=== PATIENT | male | born 1935 | race Caucasian/White ===

== ENCOUNTER 2017-06-12 16:42 | Outpatient (CLI) | payer MEDICARE | END 2017-06-12 16:43 | disposition critical access hospital (66) | LOC: EMS 16:42 | PROVIDERS: ATTEND Surgery | DX: R10.9 Unspecified abdominal pain (principal) | CPT/HCPCS: A0425; A0429 ==

== ENCOUNTER 2017-06-12 16:53 | Inpatient (IN) | payer MEDICARE ==
[2017-06-12 18:21] LABS: BASOPHILS # (AUTO) 0.1 10^3/uL (0.0-0.1); BASOPHILS % (AUTO) 0.9 %; EOSINOPHILS # (AUTO) 0.2 10^3/uL (0.0-0.7); EOSINOPHILS % (AUTO) 1.7 %; HCT - HEMATOCRIT 36.2 % (42.0-52.0); HGB - HEMOGLOBIN 12.1 g/dL (14.0-18.0); LYMPHOCYTES # (AUTO) 1.4 10^3/uL (1.5-3.5); LYMPHOCYTES % (AUTO) 13.4 %; MEAN CORPUSCULAR HEMOGLOBIN 28.1 pg (27.0-31.0); MEAN CORPUSCULAR HGB CONC 33.5 g/dL (32.0-36.0); MEAN PLATELET VOLUME 8.4 fL (7.4-11.4); MONOCYTES # (AUTO) 0.9 10^3/uL (0.0-1.0); MONOCYTES % (AUTO) 8.3 %; NEUTROPHILS # (AUTO) 7.8 10^3/uL (1.5-6.6); NEUTROPHILS % (AUTO) 75.7 %; RED BLOOD COUNT 4.31 10^6/uL (4.70-6.10); RED CELL DISTRIBUTION WIDTH 13.3 % (12.0-15.0); UNCORRECTED WHITE BLOOD COUNT 10.3 x10^3/uL; WHITE BLOOD COUNT 10.3 x10^3/uL (4.8-10.8)
[2017-06-12 18:32] LABS: ALBUMIN/GLOBULIN RATIO 1.1 (1.0-2.2); BILIRUBIN,TOTAL 1.1 mg/dL (0.2-1.0); CREATININE 0.9 mg/dL (0.6-1.2); POTASSIUM 3.8 mmol/L (3.5-5.0); TOTAL PROTEIN 7.3 g/dL (6.7-8.2)
[2017-06-12 19:33] LABS: BILIRUBIN,URINE NEGATIVE (NEGATIVE); PH,URINE 6.5 PH (5.0-7.5); UA CHARGE (STRIP ONLY) YES; UR CULTURE IF IND NOT INDICATED
[2017-06-12] MEDS ORDERED: IOPAMIDOL-300 100 ML VIAL IVP ONE (19:36)
--- NOTE | 2017-06-12 20:28 | CT Preliminary Report ---
Exam: CT Abdomen/Pelvis W/ IMPRESSION: 1. Thick-walled bladder concerning for cystitis. 2. Tiny gallstones noted. [facility] SITE ID: [id number]
--- NOTE | 2017-06-12 20:30 | CT Report ---
EXAM: CT ABDOMEN AND PELVIS EXAM DATE: 06/12/2017 07:40 PM. CLINICAL HISTORY: Abdominal pain. COMPARISONS: None. TECHNIQUE: Routine helical CT imaging was performed through the abdomen and pelvis. IV contrast: 100 cc of Isovue-300. Enteric contrast: No. Reconstructions: Coronal and sagittal. In accordance with CT protocol optimization, one or more of the following dose reduction techniques w ere utilized for this exam: automated exposure control, adjustment of mA and/or KV based on patient s ize, or use of iterative reconstructive technique. FINDINGS: Lung Bases: Coronary artery calcification noted, otherwise unremarkable. Liver: Normal. No masses. Gallbladder/Bile Ducts: Tiny gallstones noted. No dilated ducts. Spleen: Normal. Pancreas: Normal. Adrenal Glands: Normal. Kidneys: Normal. No masses or hydronephrosis. Peritoneal Cavity/Bowel: Normal. No free fluid, free air or adenopathy. No masses or acute inflammato ry process. The appendix is well visualized and normal. Pelvic Organs: Prostate unremarkable. Thick-walled bladder. Vasculature: No aortic dilatation. Moderate atherosclerotic calcification. Bones: Advanced degenerative disk disease at L4-L5 and L5-S1. Other: None. IMPRESSION: 1. Thick-walled bladder concerning for cystitis. 2. Tiny gallstones noted. [facility] Referring Provider Line: [phone] SITE ID: [id number]
--- NOTE | 2017-06-12 21:39 | ED Physician Documentation ---
History of Present Illness - Stated complaint Stated Complaint: ABD PX - Chief complaint Chief Complaint: Abd Pain - History obtained from History obtained from: Patient, Family - History of Present Illness Timing: How many weeks ago (1) Pain level max: 0 Pain level now: 0 Improved by: nothing Worsened by: nothing - Additonal information Additional information: Patient is an 82-year-old male who presents to the emergency department with complaints of increasing weakness over the past week or so. Now unable to get out of bed by himself. The daughter has been taking care of him at home since 2014. States that this is an acute change. Patient has not been eating and drinking well. No fevers. She is concerned that he has not had a bowel movement since 8 days ago. States that normally he goes every other day. Review of Systems Unable to obtain: Dementia Constitutional: denies: Fever, Chills Nose: denies: Rhinorrhea / runny nose, Congestion Throat: denies: Sore throat Respiratory: denies: Cough GI: denies: Vomiting, Diarrhea, Hematemesis, Bloody / black stool Skin: denies: Rash Musculoskeletal: denies: Neck pain, Back pain Neurologic: denies: Focal weakness, Numbness, Seizure PD PAST MEDICAL HISTORY - Past Medical History Cardiovascular: Hypertension Neuro: Dementia - Past Surgical History Past Surgical History: Yes Cardiovascular: CABG - Present Medications Home Medications: Ambulatory Orders Medication Instructions Recorded Confirmed Omeprazole 20 mg PO DAILY 03/18/15 06/12/17 QUEtiapine [SEROquel] 100 mg PO ONCE PRN 03/18/15 06/12/17 Sertraline [Zoloft] 25 mg PO DAILY 06/12/17 06/12/17 - Allergies Allergies/Adverse Reactions: Allergies Allergy/AdvReac Type Severity Reaction Status Date / Time No Known Drug Allergies Allergy Verified 06/12/17 17:02 - Social History Does the pt smoke?: No Smoking Status: Never smoker Does the pt drink ETOH?: No Does the pt have substance abuse?: No - Immunizations Immunizations are current?: Yes - POLST Patient has POLST: No PD ED PE NORMAL - Vitals Vital signs reviewed: Yes - General General: No acute distress, Well developed/nourished, Other (alert, oriented to person only) - HEENT HEENT: Atraumatic, PERRL, Moist mucous membranes - Neck Neck: Supple, no meningeal sign - Cardiac Cardiac: RRR - Respiratory Respiratory: No respiratory distress, Clear bilaterally - Abdomen Abdomen: Soft, Non tender, Non distended - Rectal Rectal: Other (soft stool in rectal vault) - Back Back: No CVA TTP, No spinal TTP - Derm Derm: Warm and dry, Other - Extremities Extremities: No calf tenderness / cord, Other (R LE scabs and erythema from the mid tibia to the toes. + warmth. ) - Neuro Neuro: Other (alert) Results - Vitals Vitals: Vital Signs - 24 hr 06/12/17 06/12/17 16:57 20:24 Temperature 36.8 C 36.9 C Heart Rate 99 91 Respiratory 24 18 Rate Blood Pressure 195/79 H 164/93 H O2 Saturation 99 96 Oxygen O2 Source Room air - Labs Labs: Laboratory Tests 06/12/17 06/12/17 06/12/17 18:12 18:12 19:20 WBC 10.3 RBC 4.31 L Hgb 12.1 L Hct 36.2 L MCV 84.0 MCH 28.1 MCHC 33.5 RDW 13.3 Plt Count 292 MPV 8.4 Neut # 7.8 H Lymph # 1.4 L [place] # 0.9 Eos # 0.2 Baso # 0.1 Absolute Nucleated RBC 0.00 Nucleated RBCs 0.0 Sodium 139 Potassium 3.8 Chloride 102 Carbon Dioxide 30 Anion Gap 7.0 BUN 31 H Creatinine 0.9 Estimated GFR (MDRD) 81 L Glucose 113 H Calcium 9.0 Total Bilirubin 1.1 H AST 15 ALT 13 Alkaline Phosphatase 68 Total Protein 7.3 Albumin 3.9 Globulin 3.4 Albumin/Globulin Ratio 1.1 Lipase 23 Urine Color YELLOW Urine Clarity CLEAR Urine pH 6.5 Ur Specific [place] 1.020 Urine Protein NEGATIVE Urine Glucose (UA) NEGATIVE Urine Ketones NEGATIVE Urine Occult Blood TRACE-INTA Urine Nitrite NEGATIVE Urine Bilirubin NEGATIVE Urine Urobilinogen 0.2 (NORMAL) Ur Leukocyte Esterase NEGATIVE Ur Microscopic Review NOT INDICATED Urine Culture Comments NOT INDICATED - Rads (name of study) abd/pelvis CT Radiology: Prelim report reviewed, EMP read contemporaneously, See rad report ( . Thick-walled bladder concerning for cystitis. Tiny gallstones noted. ) PD MEDICAL DECISION MAKING - ED course Complexity details: reviewed results, re-evaluated patient, considered differential, d/w patient, d/w family, d/w solar consultant ED course: Patient is an 82-year-old male with severe dementia who presents to the emergency department with increasing weakness over the past week. He has been unable to get out of bed and the family is unable to care for him while at home. He appears to have a spreading cellulitis of the right lower extremity and will place on IV antibiotics for this. He also appears dehydrated with an elevated BUN to creatinine ratio. He also appears deconditioned. Not hallucinating here. Possible cystitis on CT scan, but normal urinalysis here. Discussed the case with Dr. Leong, hospitalist who accepts. This document was made in part using voice recognition software. While efforts are made to proofread this document, sound alike and grammatical errors may occur. Departure - Departure Disposition: 66 [facility] DC/Xfer Clinical Impression: Generalized weakness, Physical deconditioning, Dehydration Dementia Qualifiers: Dementia type: unspecified type Dementia behavioral disturbance: without behavioral disturbance Qualified Code(s): F03.90 - Unspecified dementia without behavioral disturbance Cellulitis Qualifiers: Site of cellulitis: extremity Site of cellulitis of extremity: lower extremity Laterality: right Qualified Code(s): L03.115 - Cellulitis of right lower limb Condition: Stable Discharge Date/Time: 06/12/17 23:21
[2017-06-12] MEDS ORDERED: SODIUM CHLORIDE 0.9% 1,000 ML IV ONE (21:49)
[2017-06-12] MEDS ORDERED: SODIUM CHLORIDE 0.9% 500 ML IV ONE (21:49)
[2017-06-12] MEDS ORDERED: ONDANSETRON 4 MG/2 ML VIAL IVP PRN (22:30)
[2017-06-12] MEDS ORDERED: SODIUM CHLORIDE FLUSH 0.9% 10 ML SYRINGE IVP PRN (22:30)
[2017-06-12] MEDS ORDERED: AMPICILLIN/SULBACTAM 3 GM in SODIUM CHLORIDE 0.9% MINIBAG 100 ML IV STA (22:30)
[2017-06-12] MEDS ORDERED: QUEtiapine 25 MG TABLET PO STA ×2 (22:39→22:41)
[2017-06-13] MEDS: ACETAMINOPHEN 325 MG TABLET PO PRN ×3 (00:07→13:50)
--- NOTE | 2017-06-13 01:38 | HISTORY & PHYSICAL EXAMINATION ---
DATE OF ADMISSION: 06/12/2017 CHIEF COMPLAINT: Abdominal pain, weakness. IDENTIFYING INFORMATION: The patient is unable to give even minimal information that has any reliability and the primary source of history is his daughter, who appears cogent, consistent and thorough. Her name is Rae Aguirre, contact number [phone]. The patient's history is supplemented by the hand-off from Dr. Camilo Willard, the emergency department physician, as well as personal review of medical records and data collected during this visit. The patient's examination was also used in evaluation of this patient and preparation of this document. HISTORY OF PRESENT ILLNESS: The patient is an 82-year-old male who has had dementia for a number of years and who had been with the daughter being guardian in 2014 but she has been with them a few years before that. The patient has had a rapid decline in the last couple of months, a steeper decline yet. In particular, the patient in the end of March was evaluated for possible placement, [facility] would be the local SNF but the director who was doing the evaluation said the patient was too ambulatory and he has had nocturnal wandering habit would not to be able to be admitted there. The patient subsequently has gotten weaker and in the last few days has reached the point where he can not even sit up, turn over and get out of bed by himself. The patient's daughter, who is the sole caregiver is unable to provide the basic medial needs at this point. The patient also had abdominal pain, which has been chronic. At times, the patient seems to not to be able to recognize what he has. The patient has also been eating less, drinking less and had to be fed this week by the daughter. All these are change in symptoms. The patient appears to be talking more gibberish and more incapable of following even simple commands at times. 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 REVIEW OF SYSTEMS: No nausea reported, no vomiting. No cough. No sore throat. The patient has incontinence, both urine and feces. The rest of the complete review of systems is noted with pertinent positives in the history of present illness. PAST MEDICAL HISTORY: Remarkable for hypertension, coronary artery disease, dementia, gout. PAST SURGICAL HISTORY: He had CABG and vein harvesting in both legs. This is remote. MEDICATIONS: 1. Omeprazole 20 mg a day. 2. Seroquel 100 mg p.r.n. behavioral changes. 3. Zoloft 25 mg daily. ALLERGIES: HE HAS NO KNOWN ALLERGIES. PERSONAL AND SOCIAL HISTORY: The patient was born in [place] and when asked directly where he was born he said he was born in [place], which is where he lived later in his life. 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 The patient did a lot of traveling to [place] and [place]. This patient was a heavy smoker, over a pack a day, quit 15 years ago, he was also heavy drinker and quit 15years ago. This was because his second had throat cancer. The patient has had 4 children. A brother at 47 of heart disease. He had a son who at 47 of heart disease, he has another son and two daughters. The family history is negative for diabetes. Positive for heart disease and no cancer in the father's side noted. PHYSICAL EXAMINATION VITAL SIGNS: 36.8, 99, 24, 195/79 and 99 oxygen saturation room air. GENERAL: The patient appears well-developed, well-nourished, often talking gibberish not even intelligible words, but repetitive syllables and sounds. Sometimes there is some syntax to a sentence but does not even make sense or is understandable. EYES: EOM within normal limits, PERRL, nonicteric. MOUTH AND THROAT: Dry mucous membranes. No other pathology noted. NECK: No lymphadenopathy, no thyromegaly, no tracheal deviation. No bruits or JVD. CHEST WALL: Nontender. Symmetric. HEART: Sinus rhythm, no murmur, rubs, clicks heard. LUNGS: Clear, good air movement bilaterally. ABDOMEN: Somewhat doughy and nontender at this time. No hepatosplenomegaly appreciated. The patient had a CT scan of his abdomen and findings were thick walled bladder concerning for cystitis and tiny gallstones were noted. RECTAL/GENITAL: Exam was not done by this physician; the emergency department physician had a hemoccult negative stool with soft feces. EXTREMITIES: He has 2+ edema the right leg below the knee and has an angry red, erythematous rash from the mid calf to the ankle with areas of 1 cm eschars with surrounding erythematous base, which are proximal to the distal erythema. The patient has erythema also across the top of the foot and tenderness at the top of the foot as well. Has faint erythema of the left ankle and just above the ankle, extent of the swelling, redness, or any significant sores around the right lower leg. NEURO: Cognitive has already been discussed previously. He has very poor capacity to follow even simple commands. The patient's motor is intact. Unable to assess sensory and there is no gait trial attempted. DIAGNOSTICS: He has a white count of 10.3, 12 and 36 hemoglobin and hematocrit, platelets are 292. The patient's sodium 139, potassium 3.8, chloride 102, CO2 of 30, BUN is 31, creatinine is 0.9. The patient's glucose is 113, and calcium 9.0. Normal liver enzymes, albumin is 3.9. Urine is 1.020 with a negative microscopic. SUMMARY: This is an 82-year-old gentleman with steepened decline in his cognitive function and now with generalized progressive weakness and inability totake solids, fluids and to follow commands. The patient was found to have a cellulitis in addition to the above findings, and given his comorbidities he is admitted to the hospital for antibiotics and hydration. DIAGNOSES: 1. Cellulitis, right lower leg. 2. Dehydration. 3. Progressive generalized weakness. 4. Obstipation. 5. Hypertension. 6. Coronary artery disease. 7. Gout. 8. Gastroesophageal reflux disease. PATIENT DISCUSSION/DECISION MAKIN. Cellulitis. Will be treated with Unasyn initially. Elevate leg and heat will also be used with further interventions depending on the initial response. 2. Dehydration. The patient will be slowly rehydrated to prevent complications. 3. Generalized weakness will be addressed with physical therapy and occupational therapy evaluations and determine if any other interventions would be useful. Also, the patient will have his thyroid function checked. The obstipation has not had any findings consistent with ileus or bowel obstruction at this juncture and will need to be addressed with stool softeners. 4. Hypertension, which will be monitored and hypertension medication added if needed. Will accept a systolic blood pressure in the 160s. 5. Coronary artery disease appears to be quiescent at this point and will be monitored. 6. The patient's gout, he will have a uric acid to verify any need for medication. 7. GERD. Will be treated with his at home regime of daily PPI. HOSPITAL ISSUES: 1. Code status. The was consulted about his present condition and wishes and the will was reviewed with the daughter, Rae, and she agrees to DNR/ DNI. 2. Venous thromboembolism prophylaxis which will be Lovenox subcutaneous. 3. Diet, which will be a mechanical soft at this time. If there are any signs of aspiration we will have a speech evaluation. 4. Activity which will be guided by Physical Therapy and nurse evaluation. 5. Tubes will be a peripheral by IV at this juncture. 6. Hospital status, given his cellulitis requiring IV antibiotics, as well as his extensive comorbidities, he needs at least 3 nights of inpatient care to assure sufficient improvement for him to have a safe discharge. 7. Disposition, which is expected to be a usp facility given the extent of his deterioration with the possibility of returning home after therapy for his deconditioning and weakness. His length of stay, which is 3 nights. JOB #: [id number] EXT JOB #:[id number] MTDTrice
[2017-06-13 05:52] LABS: BASOPHILS % (AUTO) 0.3 %; EOSINOPHILS # (AUTO) 0.2 10^3/uL (0.0-0.7); EOSINOPHILS % (AUTO) 2.1 %; HCT - HEMATOCRIT 34.5 % (42.0-52.0); HGB - HEMOGLOBIN 11.9 g/dL (14.0-18.0); LYMPHOCYTES # (AUTO) 1.6 10^3/uL (1.5-3.5); MEAN CORPUSCULAR HEMOGLOBIN 28.7 pg (27.0-31.0); MEAN CORPUSCULAR HGB CONC 34.4 g/dL (32.0-36.0); MEAN CORPUSCULAR VOLUME 83.4 fL (80.0-94.0); MEAN PLATELET VOLUME 8.3 fL (7.4-11.4); MONOCYTES # (AUTO) 0.8 10^3/uL (0.0-1.0); MONOCYTES % (AUTO) 9.9 %; NEUTROPHILS # (AUTO) 5.3 10^3/uL (1.5-6.6); NEUTROPHILS % (AUTO) 67.7 %; RED BLOOD COUNT 4.14 10^6/uL (4.70-6.10); RED CELL DISTRIBUTION WIDTH 13.2 % (12.0-15.0); UNCORRECTED WHITE BLOOD COUNT 7.8 x10^3/uL; WHITE BLOOD COUNT 7.8 x10^3/uL (4.8-10.8)
[2017-06-13 06:08] LABS: BILIRUBIN,TOTAL 0.9 mg/dL (0.2-1.0); CALCIUM 8.7 mg/dL (8.5-10.3); CREATININE 0.8 mg/dL (0.6-1.2); POTASSIUM 3.7 mmol/L (3.5-5.0); URIC ACID 5.4 mg/dL (2.6-7.2)
[2017-06-13] MEDS: PANTOPRAZOLE 40 MG TABLET PO SCH (06:37)
[2017-06-13] MEDS: SODIUM CHLORIDE FLUSH 0.9% 10 ML SYRINGE IVP SCH ×3 (06:37→20:24)
--- NOTE | 2017-06-13 07:58 | PROVIDER PROGRESS NOTE ---
Subjective - Prog Note Date Prog Note Date: 06/13/17 Prog Note Time: 07:57 - Subjective Subjective: he is laying still with eyes closed. wakes easily with voice as I call his name. speech intact but content is gibberish. Current Medications - Current Medications Current Medications: Active Medications Acetaminophen (Tylenol) 650 mg PO Q4HR PRN PRN Reason: Pain 1 to 4 Last Admin: 06/13/17 06:39 Dose: 650 mg Enoxaparin Sodium (Lovenox) 40 mg SUBQ DAILY [facility] Potassium Chloride/Sodium Chloride (Normal Saline 0.9% W/20 Meq Kcl) 1,000 mls @ 80 mls/hr IV .[id number] [facility] Last Admin: 06/13/17 00:00 Dose: 80 mls/hr Ampicillin Sodium/Sulbactam (Sodium 3 gm/ Sodium Chloride) 100 mls @ 200 mls/ hr IV Q6HR [facility] Ondansetron HCl (Zofran Inj) 4 mg IVP Q4HR PRN PRN Reason: Nausea / Vomiting Pantoprazole Sodium (Protonix) 40 mg PO QDAC [facility] Last Admin: 06/13/17 06:37 Dose: 40 mg Polyethylene Glycol (Miralax) 17 gm PO DAILY [facility] Quetiapine Fumarate (Seroquel) 100 mg PO QPM [facility] Sertraline HCl (Zoloft) 25 mg PO DAILY [facility] Sodium Chloride (Normal Saline Flush 0.9%) 10 ml IVP PRN PRN PRN Reason: NEEDED PER PROVIDER ORDERS Sodium Chloride (Normal Saline Flush 0.9%) 10 ml IVP Q8HR [facility] Last Admin: 06/13/17 06:37 Dose: 10 ml Omeprazole 20 mg PO DAILY 03/18/15 QUEtiapine [SEROquel] 100 mg PO ONCE PRN 03/18/15 Sertraline [Zoloft] 25 mg PO DAILY 06/12/17 Objective - Vital Signs/Intake & Output Reviewed Vital Signs: Yes Vital Signs: Vital Signs x48h Temp Pulse Resp BP Pulse Ox 06/13/17 07:43 36.7 C 91 20 131/73 H 98 Intake & Output: Intake & Output 06/10/17 06/11/17 06/12/17 06/13/17 23:59 23:59 23:59 23:59 Intake Total 700 Balance 700 - Objective General Appearance: positive: No acute distress, Alert Eyes Bilateral: positive: PERRL ENT: positive: Pharynx nml Neck: positive: No JVD. negative: Lymphadenopathy (R), Lymphadenopathy (L), Stiff neck, Carotid bruit Respiratory: positive: Chest non-tender. negative: Wheezes, Rales, Rhonchi Cardiovascular: positive: Regular rate & rhythm. negative: Gallop/S4, Friction rub Abdomen: positive: Non-tender, No organomegaly, Nml bowel sounds, No distention Skin: positive: Other (on the medial calf and over the bah he has small areas of scabs that are 0.5-1 cm size. small areas of redness surrounding them. but rest of skin intact. calves are soft. no fluctuence. no large areas of cellultis.) Extremities: positive: Full ROM, No pedal edema. negative: Joint swelling Neurologic/Psychiatric: positive: CN's nml (2-12), Motor nml, Disoriented to person, Disoriented to place, Disoriented to time, Other ("I saw the bear, and I was hungry. Can't you get me the belt now." Run on sentences. no sense to them. 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) - Lab Results Fish Bones: 06/13/17 05:42 06/13/17 05:42 Other Labs: Lab Results x24hrs 06/13/17 06/13/17 06/13/17 Range/Units 05:42 05:42 05:42 WBC 7.8 (4.8-10.8) x10^3/uL RBC 4.14 L (4.70-6.10) 10^6/uL Hgb 11.9 L (14.0-18.0) g/dL Hct 34.5 L (42.0-52.0) % MCV 83.4 (80.0-94.0) fL MCH 28.7 (27.0-31.0) pg MCHC 34.4 (32.0-36.0) g/dL RDW 13.2 (12.0-15.0) % Plt Count 264 (130-450) 10^3/uL MPV 8.3 (7.4-11.4) fL Neut # 5.3 (1.5-6.6) 10^3/uL Lymph # 1.6 (1.5-3.5) 10^3/uL [place] # 0.8 (0.0-1.0) 10^3/uL Eos # 0.2 (0.0-0.7) 10^3/uL Baso # 0.0 (0.0-0.1) 10^3/uL Absolute Nucleated RBC 0.00 x10^3/uL Nucleated RBCs 0.0 /100WBC Sodium 141 (135-145) mmol/L Potassium 3.7 (3.5-5.0) mmol/L Chloride 108 (101-111) mmol/L Carbon Dioxide 26 (21-32) mmol/L Anion Gap 7.0 (6-13) BUN 24 H (6-20) mg/dL Creatinine 0.8 (0.6-1.2) mg/dL Estimated GFR (MDRD) 92 (>89) Glucose 107 H (70-100) mg/dL Uric Acid 5.4 (2.6-7.2) mg/dL Calcium 8.7 (8.5-10.3) mg/dL Total Bilirubin 0.9 (0.2-1.0) mg/dL AST 17 (10-42) IU/L ALT 14 (10-60) IU/L Alkaline Phosphatase 61 (42-121) IU/L Total Protein 7.0 (6.7-8.2) g/dL Albumin 3.5 (3.2-5.5) g/dL Globulin 3.5 (2.1-4.2) g/dL Albumin/Globulin Ratio 1.0 (1.0-2.2) TSH 1.64 (0.34-5.60) uIU/mL Assessment/Plan - Problem List (1) Cellulitis Impression: presented as weakness, anorexia, unable to ambulate in last few days. on exam has no fever, but had cellulitis of leg. WBC was 10.8>7.3 In reading description from admit H&P to now, leg much better. Zosyn Day #2. Plan for 24-48 more hours of treatment then switch to po. Qualifiers: Site of cellulitis: extremity Site of cellulitis of extremity: lower extremity Laterality: right Qualified Code(s): L03.115 - Cellulitis of right lower limb (2) Dehydration Impression: dry mucous membranes and mild elevation of BUN with hx of no severely diminished drinking and eating. On IVF. BUN better. RN reports if you stay at the bed, and FEED him he will eat. anticipate this problem will resolve by tomorrow. (3) Dementia Impression: rapidly progressing. syntax severely impaired. swallowing impaired. no cerebellar hx. Incontinent. no paranoia. May not be alzheimers but will etilogy make a diff at this point? I am unable to access outpt workup for this. check TSH, RPR, SPEP, and see if he can do a CT or MRI head. but may need way too much sedation for that. Qualifiers: Dementia type: unspecified type Dementia behavioral disturbance: without behavioral disturbance Qualified Code(s): F03.90 - Unspecified dementia without behavioral disturbance (4) Generalized weakness Impression: PT/OT to see and evaluate.
[2017-06-13] MEDS ORDERED: AMPICILLIN/SULBACTAM 3 GM in SODIUM CHLORIDE 0.9% MINIBAG 100 ML IV SCH ×2 (08:00→11:35)
[2017-06-13] MEDS: POLYETHYLENE GLYCOL 3350 17 GM PACKET PO SCH (08:16)
[2017-06-13] MEDS: ENOXAPARIN 40 MG/0.4 ML SYRINGE SUBQ SCH (08:18)
[2017-06-13] MEDS: SERTRALINE 25 MG TABLET PO SCH (08:18)
[2017-06-13] MEDS ORDERED: SODIUM CHLORIDE 0.9% 250 ML IV ONE (08:27)
[2017-06-13] MEDS: NS W/20 MEQ KCL 1,000 ML IV SCH ×2 (12:56)
[2017-06-13] MEDS: AMPICILLIN/SULBACTAM 3 GM in SODIUM CHLORIDE 0.9% MINIBAG 100 ML IV SCH ×2 (13:00→19:00)
[2017-06-13] MEDS: QUEtiapine 100 MG TABLET PO SCH ×2 (18:35→20:23)
[2017-06-13] MEDS ORDERED: LORazepam 2 MG/ML SYRINGE IVP ONE (18:45)
--- NOTE | 2017-06-13 19:59 | CT Preliminary Report ---
Exam: CT Head W/O IMPRESSION: Generalized age-related cortical atrophic changes without evidence of acute intracranial abnormality. [facility] SITE ID: [id number]
--- NOTE | 2017-06-13 20:05 | CT Report ---
EXAM: CT HEAD EXAM DATE: 06/13/2017 07:38 PM. CLINICAL HISTORY: Rapidly progressive dementia. COMPARISON: None. TECHNIQUE: Multiaxial CT images were obtained from the foramen magnum to the vertex. IV contrast: Non e. Reformats: Coronal. In accordance with CT protocol optimization, one or more of the following dose reduction techniques w ere utilized for this exam: automated exposure control, adjustment of mA and/or KV based on patient s ize, or use of iterative reconstructive technique. FINDINGS: Parenchyma: No intraparenchymal hemorrhage. No evidence of mass, midline shift, or CT findings of acu te infarction. Mcneal-white differentiation is distinct. Extraaxial Spaces: Normal for age. No subdural or epidural collections identified. Ventricles: The ventricles and cortical sulci are enlarged, consistent with age-related tissue loss. Sinuses: Imaged paranasal sinuses, orbits, and mastoids show no significant abnormality. Bones: No evidence of fracture or calvarial defect. Other: Diffuse chronic microangiopathic white matter changes are evident. IMPRESSION: Generalized age-related cortical atrophic changes without evidence of acute intracranial abnormality. [facility] Referring Provider Line: [phone] SITE ID: [id number]
[2017-06-13] MEDS ORDERED: MAGNESIUM HYDROXIDE 2,400 MG/30 ML UDC PO ONE (20:53)
[2017-06-14] MEDS: NS W/20 MEQ KCL 1,000 ML IV SCH ×2 (00:09→08:50)
[2017-06-14] MEDS: AMPICILLIN/SULBACTAM 3 GM in SODIUM CHLORIDE 0.9% MINIBAG 100 ML IV SCH ×4 (01:34→19:56)
[2017-06-14 05:47] LABS: BASOPHILS # (AUTO) 0.1 10^3/uL (0.0-0.1); BASOPHILS % (AUTO) 0.5 %; EOSINOPHILS # (AUTO) 0.1 10^3/uL (0.0-0.7); EOSINOPHILS % (AUTO) 0.6 %; HCT - HEMATOCRIT 36.9 % (42.0-52.0); HGB - HEMOGLOBIN 12.2 g/dL (14.0-18.0); LYMPHOCYTES # (AUTO) 1.1 10^3/uL (1.5-3.5); LYMPHOCYTES % (AUTO) 10.3 %; MEAN CORPUSCULAR HEMOGLOBIN 27.8 pg (27.0-31.0); MEAN CORPUSCULAR HGB CONC 33.1 g/dL (32.0-36.0); MEAN CORPUSCULAR VOLUME 83.9 fL (80.0-94.0); MEAN PLATELET VOLUME 8.1 fL (7.4-11.4); MONOCYTES # (AUTO) 0.8 10^3/uL (0.0-1.0); MONOCYTES % (AUTO) 7.3 %; NEUTROPHILS # (AUTO) 8.7 10^3/uL (1.5-6.6); NEUTROPHILS % (AUTO) 81.3 %; NUCLEATED RED BLOOD CELLS AUTO 0.1 /100WBC; RED CELL DISTRIBUTION WIDTH 13.4 % (12.0-15.0); UNCORRECTED WHITE BLOOD COUNT 10.7 x10^3/uL; WHITE BLOOD COUNT 10.7 x10^3/uL (4.8-10.8)
[2017-06-14 05:59] LABS: CALCIUM 8.5 mg/dL (8.5-10.3); CREATININE 0.9 mg/dL (0.6-1.2); POTASSIUM 3.6 mmol/L (3.5-5.0); TOTAL PROTEIN 7.3 g/dL (6.7-8.2)
[2017-06-14] MEDS: PANTOPRAZOLE 40 MG TABLET PO SCH (06:31)
[2017-06-14] MEDS: SODIUM CHLORIDE FLUSH 0.9% 10 ML SYRINGE IVP SCH ×3 (06:31→19:56)
--- NOTE | 2017-06-14 08:12 | PROVIDER PROGRESS NOTE ---
Subjective - Prog Note Date Prog Note Date: 06/14/17 Prog Note Time: 08:10 - Subjective Subjective: he is cooperative. words intact but speech and sentence structure gibberish. RN reports no new problems. Current Medications - Current Medications Current Medications: Active Medications Acetaminophen (Tylenol) 650 mg PO Q4HR PRN PRN Reason: Pain 1 to 4 Last Admin: 06/13/17 13:50 Dose: 650 mg Docusate Sodium (Colace 250mg Capsule) 250 - 500 mg PO DAILY [facility] Enoxaparin Sodium (Lovenox) 40 mg SUBQ DAILY [facility] Last Admin: 06/13/17 08:18 Dose: 40 mg Potassium Chloride/Sodium Chloride (Normal Saline 0.9% W/20 Meq Kcl) 1,000 mls @ 80 mls/hr IV .[id number] [facility] Last Admin: 06/14/17 00:09 Dose: Not Given Ampicillin Sodium/Sulbactam (Sodium 3 gm/ Sodium Chloride) 100 mls @ 200 mls/ hr IV Q6H [facility] Last Admin: 06/14/17 01:34 Dose: 200 mls/hr Ondansetron HCl (Zofran Inj) 4 mg IVP Q4HR PRN PRN Reason: Nausea / Vomiting Pantoprazole Sodium (Protonix) 40 mg PO QDAC [facility] Last Admin: 06/14/17 06:31 Dose: Not Given Polyethylene Glycol (Miralax) 17 gm PO DAILY [facility] Last Admin: 06/13/17 08:16 Dose: 17 gm Quetiapine Fumarate (Seroquel) 100 mg PO QPM [facility] Last Admin: 06/13/17 20:23 Dose: Not Given Senna (Senokot) 8.6 - 17.2 mg PO DAILY [facility] Sertraline HCl (Zoloft) 25 mg PO DAILY [facility] Last Admin: 06/13/17 08:18 Dose: 25 mg Sodium Chloride (Normal Saline Flush 0.9%) 10 ml IVP PRN PRN PRN Reason: NEEDED PER PROVIDER ORDERS Last Admin: 06/13/17 13:01 Dose: 10 ml Sodium Chloride (Normal Saline Flush 0.9%) 10 ml IVP Q8HR [facility] Last Admin: 06/14/17 06:31 Dose: Not Given Omeprazole 20 mg PO DAILY 03/18/15 QUEtiapine [SEROquel] 100 mg PO ONCE PRN 05/27/15 Sertraline [Zoloft] 25 mg PO DAILY 06/12/17 Objective - Vital Signs/Intake & Output Reviewed Vital Signs: Yes Vital Signs: Vital Signs x48h Temp Pulse Resp BP Pulse Ox 06/14/17 01:16 36.6 C 107 H 18 137/99 H 99 Intake & Output: Intake & Output 06/11/17 06/12/17 06/13/17 06/14/17 23:59 23:59 23:59 23:59 Intake Total 2979 721 Balance 2979 721 - Objective General Appearance: positive: No acute distress, Alert Eyes Bilateral: positive: PERRL, EOMI ENT: positive: Pharynx nml Neck: positive: No JVD. negative: Lymphadenopathy (R), Lymphadenopathy (L), Stiff neck Respiratory: positive: Chest non-tender. negative: Wheezes, Rales, Rhonchi Cardiovascular: positive: Regular rate & rhythm. negative: Gallop/S4, Friction rub Abdomen: positive: Non-tender, No organomegaly, Nml bowel sounds, No distention Skin: negative: Other (round eschar excoriations on right leg stable with minimal redness. the cellulitis seen on exam is fading.) Extremities: positive: Full ROM, No pedal edema Neurologic/Psychiatric: positive: Disoriented to place, Disoriented to time, Weakness (diffuse, non focal, unsteay on his feet.) - Lab Results Fish Bones: 06/14/17 05:37 06/14/17 05:37 Other Labs: Lab Results x24hrs 06/14/17 06/14/17 06/14/17 Range/Units 05:37 05:37 05:37 WBC 10.7 (4.8-10.8) x10^3/uL RBC 4.40 L (4.70-6.10) 10^6/uL Hgb 12.2 L (14.0-18.0) g/dL Hct 36.9 L (42.0-52.0) % MCV 83.9 (80.0-94.0) fL MCH 27.8 (27.0-31.0) pg MCHC 33.1 (32.0-36.0) g/dL RDW 13.4 (12.0-15.0) % Plt Count 302 (130-450) 10^3/uL MPV 8.1 (7.4-11.4) fL Neut # 8.7 H (1.5-6.6) 10^3/uL Lymph # 1.1 L (1.5-3.5) 10^3/uL [place] # 0.8 (0.0-1.0) 10^3/uL Eos # 0.1 (0.0-0.7) 10^3/uL Baso # 0.1 (0.0-0.1) 10^3/uL Absolute Nucleated RBC 0.01 x10^3/uL Nucleated RBCs 0.1 /100WBC Sodium 138 (135-145) mmol/L Potassium 3.6 (3.5-5.0) mmol/L Chloride 103 (101-111) mmol/L Carbon Dioxide 28 (21-32) mmol/L Anion Gap 7.0 (6-13) BUN 15 (6-20) mg/dL Creatinine 0.9 (0.6-1.2) mg/dL Estimated GFR (MDRD) 81 L (>89) Glucose 126 H (70-100) mg/dL Uric Acid (2.6-7.2) mg/dL Calcium 8.5 (8.5-10.3) mg/dL Total Bilirubin 1.0 (0.2-1.0) mg/dL AST 25 (10-42) IU/L ALT 19 (10-60) IU/L Alkaline Phosphatase 78 (42-121) IU/L Total Protein 7.3 (6.7-8.2) g/dL Albumin 3.7 (3.2-5.5) g/dL Globulin 3.6 (2.1-4.2) g/dL Albumin/Globulin Ratio 1.0 (1.0-2.2) Vitamin B12 376 (180-914) pg/mL TSH (0.34-5.60) uIU/mL 06/13/17 06/13/17 06/13/17 Range/Units 05:42 05:42 05:42 WBC 7.8 (4.8-10.8) x10^3/uL RBC 4.14 L (4.70-6.10) 10^6/uL Hgb 11.9 L (14.0-18.0) g/dL Hct 34.5 L (42.0-52.0) % MCV 83.4 (80.0-94.0) fL MCH 28.7 (27.0-31.0) pg MCHC 34.4 (32.0-36.0) g/dL RDW 13.2 (12.0-15.0) % Plt Count 264 (130-450) 10^3/uL MPV 8.3 (7.4-11.4) fL Neut # 5.3 (1.5-6.6) 10^3/uL Lymph # 1.6 (1.5-3.5) 10^3/uL [place] # 0.8 (0.0-1.0) 10^3/uL Eos # 0.2 (0.0-0.7) 10^3/uL Baso # 0.0 (0.0-0.1) 10^3/uL Absolute Nucleated RBC 0.00 x10^3/uL Nucleated RBCs 0.0 /100WBC Sodium 141 (135-145) mmol/L Potassium 3.7 (3.5-5.0) mmol/L Chloride 108 (101-111) mmol/L Carbon Dioxide 26 (21-32) mmol/L Anion Gap 7.0 (6-13) BUN 24 H (6-20) mg/dL Creatinine 0.8 (0.6-1.2) mg/dL Estimated GFR (MDRD) 92 (>89) Glucose 107 H (70-100) mg/dL Uric Acid 5.4 (2.6-7.2) mg/dL Calcium 8.7 (8.5-10.3) mg/dL Total Bilirubin 0.9 (0.2-1.0) mg/dL AST 17 (10-42) IU/L ALT 14 (10-60) IU/L Alkaline Phosphatase 61 (42-121) IU/L Total Protein 7.0 (6.7-8.2) g/dL Albumin 3.5 (3.2-5.5) g/dL Globulin 3.5 (2.1-4.2) g/dL Albumin/Globulin Ratio 1.0 (1.0-2.2) Vitamin B12 (180-914) pg/mL TSH 1.64 (0.34-5.60) uIU/mL Assessment/Plan - Problem List (1) Cellulitis Impression: presented as weakness, anorexia, unable to ambulate in last few days. on exam has no fever, but had cellulitis of leg. WBC was 10.8>7.3 In reading description from admit H&P to now, leg much better. Zosyn Day #3. Plan for 24 more hours of treatment then switch to po. DC tomorrow to which ever transition daughter identifies. Qualifiers: Site of cellulitis: extremity Site of cellulitis of extremity: lower extremity Laterality: right Qualified Code(s): L03.115 - Cellulitis of right lower limb (2) Dehydration Impression: resolved. dry mucous membranes and mild elevation of BUN with hx of no severely diminished drinking and eating. On IVF. will IV lock and encourage po intake by offering him water frequently. BUN better. RN reports if you stay at the bed, and FEED him he will eat. (3) Dementia Impression: rapidly progressing. syntax severely impaired. swallowing impaired. no cerebellar hx. Incontinent. no paranoia. May not be alzheimers but will etilogy make a diff at this point? I am unable to access outpt workup for this. TSH normal RPR, SPEP pending B12 normal CT of head normal. able to hold still after 1 mg ativan IV. Social Service has spent time on the phone with his daughter. She is worn out, sad at her dads quick deterioration. She is now considering option of returning him home with Hospice. Will rediscuss this afternoon and check in with them. Qualifiers: Dementia type: unspecified type Dementia behavioral disturbance: without behavioral disturbance Qualified Code(s): F03.90 - Unspecified dementia without behavioral disturbance (4) Generalized weakness Impression: PT/OT to see and evaluate. (3) Dementia Qualifiers: Dementia behavioral disturbance: without behavioral disturbance
[2017-06-14] MEDS: POLYETHYLENE GLYCOL 3350 17 GM PACKET PO SCH (08:49)
[2017-06-14] MEDS: SERTRALINE 25 MG TABLET PO SCH (08:49)
[2017-06-14] MEDS: ACETAMINOPHEN 325 MG TABLET PO PRN ×2 (08:50→16:21)
[2017-06-14] MEDS: DOCUSATE SODIUM 250 MG CAPSULE PO SCH (08:50)
[2017-06-14] MEDS: ENOXAPARIN 40 MG/0.4 ML SYRINGE SUBQ SCH (08:51)
[2017-06-14] MEDS: SENNA 8.6 MG TABLET PO SCH (08:51)
--- NOTE | 2017-06-14 14:49 | ADVANCE CARE PLANNING NOTE ---
Advance Care Planning - Date/Time Date: 06/14/17 Time: 14:45 (Conversation started at 14:00) - Parties in attendance Parties in attendance: daughter and POA Rae Aguirre, patient Hospitalist, Dr. Maria Esther Chand - Decisional capacity Decisional capacity of: Patient is impaired. He has severe dementia and is completely dependent on care providers for activities of daily living, hygiene, food. - Subjective/Patient's story Subjective/Patient's story: Is provided by his daughter. The patient is unable to provide a lucid history. He was born and raised in [place]. 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 He was to a first , and his daughter is a product of that union. They when she was 4 years old. He subsequently another lady and the lived in the [facility]. His past medical history was that of heavy drinking and smoking, coronary artery disease with bypass surgery. She describes him as a gentle man who dearly loved his second and described her as "the love of his life". His second developed head and neck cancer/laryngeal cancer approximately 2001 -2002. She survived until 2015. Unfortunately he developed dementia around [id number] and his tried to take care of him in spite of her illnesses. Because of her head and neck cancer she pured all of her food. And because it was too much effort to get separate food, she was giving her pured food as well. His daughter would visit them periodically. His daughter began taking care of her mother who of pancreatic cancer in 2013. Her mother in her arms. And at home comfortably. She was unable to switch her attention to her father and when to go spend more time with him in the [facility] area with her stepmother. She realized that her stepmother was quite ill, and probably also with dementia on her own part. The daughter was really upset to find her father not eating well, and being neglected. And eating pured diet when he did not need to eat a pured diet. He was not being bathed and had penile ulcers, scrotal ulcers, and buttock ulcers from sitting too long in his urine. However the daughter had very little power in that he is was the power of tax attorney. So she did the best she could visiting him frequently, bringing him food, and taking care of his hygiene when she was with him. Her stepmother subsequently succumbed to her head and neck cancer and 6 months after her mother . She was able to bring her father from the [facility] to [facility] in 2014. He lives with her. She a year ago so he lives with her, her , and a daughter from her previous marriage. His dementia has been progressive. When she first started taking care of them in he had the mentation of "an 7-year-old boy". Now he is down to the level of almost a baby. It is like taking care of someone who is less than 1-year-old. He can be emotionally labile, strike out at her, and will get into confrontations with her . He paced constantly. At times he became constipated and she would have to manually disimpact him. She made sure he got a bath on a regular basis. She shaves him regularly and he loves that. And a lot of the skin problems from urinary incontinence resolved. She went to [place] to visit her girlfriend who was dying of cancer in late April early May. When she returned from that visit, she noticed that her father had taken a turn for the worse with regards to mentation. He was refusing to eat. Not drinking very much. His pacing became less and less. He started spending more time in bed sleeping. No history of falls or trauma. No cough, abd pain but bowel movements much less frequent. Still incontinent of urine. When he finally was no longer getting out of bed and when she brought him to the hospital. With our admission we found him to have cellulitis of the right lower leg. He is a "oyster picker" and will scratch and pick at his skin. He was dehydrated. - Objective/Medical story Objective/Medical Story: He is an 82-year-old white male who has a diagnosis of severe dementia. Past medical history is that of hypertension, coronary artery disease, gout. He has had bypass surgery and vein harvesting in both legs. He has been living with his daughter since 2014. She is his power of tax attorney and primary caregiver. She describes a severely deteriorating status with progressive dementia over the last month. But dementia starting over a decade ago. He takes omeprazole Seroquel and Zoloft to control behavioral changes and complaints of reflux. He was brought to the hospital because of a severe decline in the last month. He is no longer getting out of bed. He fretful he picks at his own skin and has developed cellulitis of the right lower extremity. On examination he was also dehydrated. Since being in the hospital His dehydration has resolved. He has been afebrile with normal vital signs. His cellulitis is definitely improved of the right lower extremity. But he remains a severely demented elderly man with gibberish for speech. He is cooperative. Will only eat if you feed him. TSH, B12 are normal. RPR is pending. CT of the head is negative. - Goals of Care Goals of care determinations: I have explained that I feel he is at end of life with regards to his dementia. In his Trust, the patient has stated that he did not want aggressive measures to keep him alive. He preferred to be at home and never hospitalized. He even went as far as to say he did not want morphine at end of life. She would like him to be at home with her. She would prefer not to place him in SNF. She would like help in bathing him a few times a week. She would like medicine to keep him calm when he is upset. She just wants to keep him comfortable and abide by his wises. She also wants to care for him like she did her mom and have him " in her arms like mom did." - Plan Plan: Hospice Consult. Discharge to her home if able. - Code Status Code Status: Do Not Attempt Resuscitation - Time Spent on Advance Care Planning Time spent on advance care plannin minutes
[2017-06-14] MEDS: QUEtiapine 100 MG TABLET PO SCH (19:56)
[2017-06-15] MEDS: AMPICILLIN/SULBACTAM 3 GM in SODIUM CHLORIDE 0.9% MINIBAG 100 ML IV SCH ×3 (01:33→16:12)
[2017-06-15 05:44] LABS: BASOPHILS # (AUTO) 0.1 10^3/uL (0.0-0.1); BASOPHILS % (AUTO) 0.8 %; EOSINOPHILS # (AUTO) 0.1 10^3/uL (0.0-0.7); HCT - HEMATOCRIT 36.8 % (42.0-52.0); HGB - HEMOGLOBIN 12.3 g/dL (14.0-18.0); LYMPHOCYTES # (AUTO) 0.9 10^3/uL (1.5-3.5); LYMPHOCYTES % (AUTO) 7.9 %; MEAN CORPUSCULAR HEMOGLOBIN 27.9 pg (27.0-31.0); MEAN CORPUSCULAR HGB CONC 33.4 g/dL (32.0-36.0); MEAN CORPUSCULAR VOLUME 83.5 fL (80.0-94.0); MONOCYTES # (AUTO) 0.7 10^3/uL (0.0-1.0); MONOCYTES % (AUTO) 6.2 %; NEUTROPHILS % (AUTO) 84.1 %; RED BLOOD COUNT 4.41 10^6/uL (4.70-6.10); RED CELL DISTRIBUTION WIDTH 13.4 % (12.0-15.0); UNCORRECTED WHITE BLOOD COUNT 11.9 x10^3/uL; WHITE BLOOD COUNT 11.9 x10^3/uL (4.8-10.8)
[2017-06-15 05:52] LABS: ALBUMIN/GLOBULIN RATIO 0.9 (1.0-2.2); BILIRUBIN,TOTAL 0.9 mg/dL (0.2-1.0); CALCIUM 8.3 mg/dL (8.5-10.3); CREATININE 0.9 mg/dL (0.6-1.2); POTASSIUM 3.3 mmol/L (3.5-5.0); TOTAL PROTEIN 7.4 g/dL (6.7-8.2)
[2017-06-15] MEDS: SODIUM CHLORIDE FLUSH 0.9% 10 ML SYRINGE IVP SCH ×3 (06:00→20:32)
[2017-06-15] MEDS: ACETAMINOPHEN 325 MG TABLET PO PRN (06:00)
[2017-06-15] MEDS: PANTOPRAZOLE 40 MG TABLET PO SCH ×2 (06:01→06:10)
[2017-06-15] MEDS ORDERED: SODIUM CHLORIDE FLUSH 0.9% 10 ML SYRINGE IVP ONE (08:35)
[2017-06-15] MEDS: SENNA 8.6 MG TABLET PO SCH (08:42)
[2017-06-15] MEDS: DOCUSATE SODIUM 250 MG CAPSULE PO SCH (08:42)
[2017-06-15] MEDS: SERTRALINE 25 MG TABLET PO SCH (08:43)
[2017-06-15] MEDS: ENOXAPARIN 40 MG/0.4 ML SYRINGE SUBQ SCH (08:43)
[2017-06-15] MEDS: POTASSIUM CHLORIDE 20 MEQ TABLET PO SCH (16:12)
[2017-06-15] MEDS: POLYETHYLENE GLYCOL 3350 17 GM PACKET PO SCH (16:12)
--- NOTE | 2017-06-15 18:05 | PROVIDER PROGRESS NOTE ---
Subjective - Prog Note Date Prog Note Date: 06/15/17 Prog Note Time: 18:03 - Subjective Subjective: he is still eating when you offer him food. will look at you when you walk in room. occasionally smile. speech still doesn't make sense. no new events. Current Medications - Current Medications Current Medications: Active Medications Acetaminophen (Tylenol) 650 mg PO Q4HR PRN PRN Reason: Pain 1 to 4 Last Admin: 06/15/17 06:00 Dose: 650 mg Docusate Sodium (Colace 250mg Capsule) 250 - 500 mg PO DAILY [facility] Last Admin: 06/15/17 08:42 Dose: 250 mg Enoxaparin Sodium (Lovenox) 40 mg SUBQ DAILY [facility] Last Admin: 06/15/17 08:43 Dose: 40 mg Ampicillin Sodium/Sulbactam (Sodium 3 gm/ Sodium Chloride) 100 mls @ 200 mls/ hr IV Q6H [facility] Last Admin: 06/15/17 16:12 Dose: 200 mls/hr Ondansetron HCl (Zofran Inj) 4 mg IVP Q4HR PRN PRN Reason: Nausea / Vomiting Pantoprazole Sodium (Protonix) 40 mg PO QDAC [facility] Last Admin: 06/15/17 06:10 Dose: Not Given Polyethylene Glycol (Miralax) 17 gm PO DAILY [facility] Last Admin: 06/15/17 16:12 Dose: Not Given Potassium Chloride (K-Dur) 40 meq PO DAILYWM [facility] Last Admin: 06/15/17 16:12 Dose: 40 meq Quetiapine Fumarate (Seroquel) 100 mg PO QPM [facility] Last Admin: 06/14/17 19:56 Dose: 100 mg Senna (Senokot) 8.6 - 17.2 mg PO DAILY [facility] Last Admin: 06/15/17 08:42 Dose: 17.2 mg Sertraline HCl (Zoloft) 25 mg PO DAILY [facility] Last Admin: 06/15/17 08:43 Dose: 25 mg Sodium Chloride (Normal Saline Flush 0.9%) 10 ml IVP PRN PRN PRN Reason: NEEDED PER PROVIDER ORDERS Last Admin: 06/13/17 13:01 Dose: 10 ml Sodium Chloride (Normal Saline Flush 0.9%) 10 ml IVP Q8HR [facility] Last Admin: 06/15/17 08:37 Dose: 10 ml Omeprazole 20 mg PO DAILY 03/18/15 QUEtiapine [SEROquel] 100 mg PO ONCE PRN 03/18/15 Sertraline [Zoloft] 25 mg PO DAILY 06/12/17 Objective - Vital Signs/Intake & Output Reviewed Vital Signs: Yes Vital Signs: Vital Signs x48h Temp Pulse Resp BP Pulse Ox 06/15/17 16:07 37.4 C 88 16 144/75 H 100 Intake & Output: Intake & Output 06/12/17 06/13/17 06/14/17 06/15/17 23:59 23:59 23:59 23:59 Intake Total 2979 1710 552 Output Total 100 Balance 2979 1710 452 - Objective General Appearance: positive: No acute distress, Alert (but not oriented at all) Eyes Bilateral: positive: PERRL, EOMI ENT: positive: Pharynx nml Neck: positive: No JVD. negative: Lymphadenopathy (R), Lymphadenopathy (L), Stiff neck, Carotid bruit Respiratory: positive: Chest non-tender. negative: Wheezes, Rales, Rhonchi Cardiovascular: negative: Gallop/S4, Friction rub Abdomen: positive: Non-tender, No organomegaly, Nml bowel sounds, No distention Skin: positive: Warm, Dry, Other (cellulitis on right lower leg gets better and better daily and today almost all gone with redness. just healing eschars.) Extremities: positive: Non-tender, Full ROM, No pedal edema Neurologic/Psychiatric: positive: Disoriented to person, Disoriented to place, Disoriented to time, Weakness, Slurred/abnml speech (sentence structure not intact, random words. no meaning to them) - Lab Results Fish Bones: 06/15/17 05:36 06/15/17 05:36 Other Labs: Lab Results x24hrs 06/15/17 06/15/17 Range/Units 05:36 05:36 WBC 11.9 H (4.8-10.8) x10^3/uL RBC 4.41 L (4.70-6.10) 10^6/uL Hgb 12.3 L (14.0-18.0) g/dL Hct 36.8 L (42.0-52.0) % MCV 83.5 (80.0-94.0) fL MCH 27.9 (27.0-31.0) pg MCHC 33.4 (32.0-36.0) g/dL RDW 13.4 (12.0-15.0) % Plt Count 291 (130-450) 10^3/uL MPV 8.0 (7.4-11.4) fL Neut # 10.0 H (1.5-6.6) 10^3/uL Lymph # 0.9 L (1.5-3.5) 10^3/uL [place] # 0.7 (0.0-1.0) 10^3/uL Eos # 0.1 (0.0-0.7) 10^3/uL Baso # 0.1 (0.0-0.1) 10^3/uL Absolute Nucleated RBC 0.00 x10^3/uL Nucleated RBCs 0.0 /100WBC Sodium 136 (135-145) mmol/L Potassium 3.3 L (3.5-5.0) mmol/L Chloride 103 (101-111) mmol/L Carbon Dioxide 28 (21-32) mmol/L Anion Gap 5.0 L (6-13) BUN 15 (6-20) mg/dL Creatinine 0.9 (0.6-1.2) mg/dL Estimated GFR (MDRD) 81 L (>89) Glucose 112 H (70-100) mg/dL Calcium 8.3 L (8.5-10.3) mg/dL Total Bilirubin 0.9 (0.2-1.0) mg/dL AST 20 (10-42) IU/L ALT 19 (10-60) IU/L Alkaline Phosphatase 74 (42-121) IU/L Total Protein 7.4 (6.7-8.2) g/dL Albumin 3.6 (3.2-5.5) g/dL Globulin 3.8 (2.1-4.2) g/dL Albumin/Globulin Ratio 0.9 L (1.0-2.2) Assessment/Plan - Problem List (1) Dementia Impression: presented as weakness, anorexia, unable to ambulate in last few days. on exam has no fever, but had cellulitis of leg. WBC was 10.8>7.3 In reading description from admit H&P to now, leg much better. Zosyn Day #4. Plan dc IV abx. Change to po bactrim. plan was DC today but not ready for equipment at home so will go tomorrow. Qualifiers: Site of cellulitis: extremity Site of cellulitis of extremity: lower extremity Laterality: right Qualified Code(s): L03.115 - Cellulitis of right lower limb (2) Dehydration Impression: resolved. dry mucous membranes and mild elevation of BUN with hx of no severely diminished drinking and eating. On IVF. IV locked yesterday and encouraged po intake by offering him water frequently. BUN better. RN reports if you stay at the bed, and FEED him he will eat. (3) Dementia Impression: rapidly progressing. syntax severely impaired. swallowing impaired. no cerebellar hx. Incontinent. no paranoia. May not be alzheimers but will etilogy make a diff at this point? I am unable to access outpt workup for this. TSH normal RPR, SPEP pending B12 normal CT of head normal. able to hold still after 1 mg ativan IV. Social Service has spent time on the phone with his daughter. She is worn out, sad at her dads quick deterioration. She was considering option of returning him home with Hospice and that is being firmed up with equipment at house tomorrow and dc tomorrow. Open to Hospice on Monday next week (today is ) Qualifiers: Dementia type: unspecified type Dementia behavioral disturbance: without behavioral disturbance Qualified Code(s): F03.90 - Unspecified dementia without behavioral disturbance (4) Generalized weakness Impression: PT/OT evaluated and he did cooperate with them and could benefit but since he is going into Hospice will not order in outpt setting. (3) Dementia Qualifiers: Dementia behavioral disturbance: without behavioral disturbance
[2017-06-15] MEDS: SULFAMETH/TRIMETH DS 800/160 MG TABLET PO SCH (20:31)
[2017-06-15] MEDS: QUEtiapine 100 MG TABLET PO SCH (20:32)
[2017-06-16] MEDS: SODIUM CHLORIDE FLUSH 0.9% 10 ML SYRINGE IVP SCH ×2 (06:40→08:49)
[2017-06-16] MEDS: PANTOPRAZOLE 40 MG TABLET PO SCH (06:40)
[2017-06-16 07:44] VITALS: BP 136/85
--- NOTE | 2017-06-16 08:27 | Discharge Plan ---
Discharge Plan Disposition: 50 Hospice/Home DC/Xfer Condition: Fair Prescriptions: Sulfamethox/Trimeth 800/160 [Bactrim Ds] 1 tab PO BID #6 tablet Diet: Regular Activity Restrictions: Activity as Tolerated Shower Restrictions: No Driving Restrictions: Yes (no driving) Follow-Up Care: Hospice No Smoking: If you smoke, Please STOP! Call for help. Follow-up with: Mando Baker MD [Primary Care Provider] -
[2017-06-16] MEDS: POTASSIUM CHLORIDE 20 MEQ TABLET PO SCH (08:32)
[2017-06-16] MEDS: SENNA 8.6 MG TABLET PO SCH (08:32)
[2017-06-16] MEDS: DOCUSATE SODIUM 250 MG CAPSULE PO SCH (08:33)
[2017-06-16] MEDS: SULFAMETH/TRIMETH DS 800/160 MG TABLET PO SCH (08:33)
[2017-06-16] MEDS: POLYETHYLENE GLYCOL 3350 17 GM PACKET PO SCH (08:35)
[2017-06-16] MEDS: SERTRALINE 25 MG TABLET PO SCH (08:43)
[2017-06-16] MEDS: ENOXAPARIN 40 MG/0.4 ML SYRINGE SUBQ SCH (08:48)
--- NOTE | 2017-06-16 18:44 | DISCHARGE SUMMARY ---
DATE OF ADMISSION: 06/12/2017 DATE OF DISCHARGE: 06/16/2017 DISCHARGE DIAGNOSES: 1. Cellulitis of the right leg. 2. Dehydration. 3. Dementia with Alzheimer disease with depression. 4. Weakness that is generalized. 5. Hypokalemia. DISCHARGE MEDICATIONS: 1. Omeprazole 20 mg a day. 2. Seroquel 100 mg a day. 3. Sertraline 25 mg a day. 4. Bactrim double strength 1 p.o. b.i.d., #6. PRINCIPAL PROCEDURES: Abdomen and pelvis CT and head CT. Thick-walled bladder concerning for cystitis and tiny gallstones noted. Head CT showing generalized age-related cortical atrophic changes without evidence of acute intracranial abnormality. TSH was normal. B12 was normal. HOSPITAL COURSE: The patient is an 82-year-old man who lives with his daughter. He has a history of d ementia. It has been present since about [id number], and he started living with her about 2014. His de mentia has become progressive. He sometimes has aggressive outbursts towards her , scares her daughter. She tried to place him at the end of March because it was exhausting to take care of him, bu t he was too ambulatory with the nocturnal wandering habits so was not able to be placed. Since March he has gotten weaker and weaker. In the last few days he has gotten to the point where he does not ge t up, he does not turnover, he does not get out of bed by himself. He has been having some abdominal pain. It is chronic, but is causing him not to eat anything, drink anything. At times she has had to hand feed him, but had to coax him. He has always been incoherent with his speech, but lately that is getting worse. He is unable to follow simple commands anymore. 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 He was seen in the emergency room by Dr. Willard, and white cell count was normal. He has a chronic an emia. BUN was 31 and creatinine was 0.9. His right leg had a series of sores and eschars which were s urrounded by bright redness that was confluent and the entire right lateral leg was red and hot, comp atible with cellulitis. Dr Willard felt that the patient was also mildly dehydrated and he was brought in for the treatment of the cellulitis and mild dehydration. His cellulitis improved tremendously within 48 hours. In retrospect, his weakness and anorexia were m ost likely to an infected right leg, but he was unable to verbalize that. White cell count started at 10.8 and dropped to 7.3. He was started on Zosyn, and after 3 days of Zosyn was transitioned to p.o. Bactrim. On exam, he had dry mucous membranes and mildly elevated BUN and all of that resolved with IV fluids so no more dehydration. Dementia was described as a rapidly progressive dementia. is severely impaired. Swallowing was impaired. He did not have a cerebellar history and no gait atax ia. Incontinent. No paranoia. We repeated TSH and B12. CT of the head was negative. At pending at [facility] charge is a treponema workup. Generalized weakness with quite severe when he presented to us, but wit h hydration, and the nurse's hand feeding him he improved a little bit with his strength. He was seen by PT, OT and they warned that he needed constant skilled cues for movement. He cooperated but needs constant cues and was a fall risk because he could not follow instruction or visual cues. He really did try and cooperate with them and work on the task. He would have pain behavior upon standing, and would ask to sit down. The right knee appeared slightly swollen and painful when he stood and then wo uld be comfortable when he sat. ADVANCED CARE PLANNING conversation was had with the daughter. We did that on 06/14/2017, and she fel t like her dad had come to the point in life where it might be time to transition him. Please refer t o the advanced care plan. In the end it was felt that he was demented, had suffered a severe function al setback with activities of daily living and would be a good candidate for hospice. As such, he was discontinued from all medications, transitioned to only comfort medications, but also to finish his oral antibiotics. At the time of discharge hospice was not going to up until Monday. Today is Monday. But the daughter has been sent home with a Dwight lift, a bed, and his usual medications that would be for comfort measures. His temperature is 36.6, pulse is 89, blood pressure 136/85, respirat ions 20, and 100% on room air. His daughter had recently shaven him so he looked much better than on admission. His oral mucosa was no longer dry and was pink. Whereas before he was mumbling incoherent, he could at least utter a few words here and there that make some sense. Whereas before he could not follow any cues, he was able to follow cues as long as it was 1 on 1, and there was not a lot of dis traction in the room. His lungs were completely clear. Abdomen had soft, nontender findings. Normal b owel sounds. No rebound or guarding. The right leg had still healing eschar, but the bright red confl uent skin was gone. Maybe some minimal redness at the base of all of his picking scars. No edema. He is alert, but completely disoriented to person, place and time. He responds very nicely to his daught er. He is discharged in stable condition with a poor prognosis because of his dementia. It is anticip ated he will continue to fail at home with inevitable in the next few months. Greater than 30 minutes was spent coordinating discharge. JOB #: [id number] EXT JOB #:[id number]
[2017-06-16 21:11] LABS: ALPHA 1 GLOBULIN 0.4 g/dL (0.2-0.3); ALPHA 2 GLOBULIN 0.8 g/dL (0.5-0.9); BETA 1 GLOBULIN 0.4 g/dL (0.4-0.6); BETA 2 GLOBULIN 0.4 g/dL (0.2-0.5); GAMMA GLOBULIN 1.1 g/dL (0.8-1.7)
[2017-06-17 00:01] LABS: HSV 1 IGG INDEX <0.90 INDEX (()); HSV 1/2 IGM INDEX <0.90 INDEX (())
== END 2017-06-16 14:56 | disposition hospice, home (50) | DRG 603 ==
LOC: EDUNIT# → ED 16:53 → MS2 22:30
PROVIDERS: ADMIT Internal Medicine; ATTEND Specialist
DX: L03.115 Cellulitis of right lower limb (principal); F02.81 Dementia in other diseases classified elsewhere, unspecified severity, with behavioral disturbance; E86.0 Dehydration; F03.90 Unspecified dementia, unspecified severity, without behavioral disturbance, psychotic disturbance, mood disturbance, and anxiety; I10 Essential (primary) hypertension; E87.6 Hypokalemia; G30.9 Alzheimer's disease, unspecified; Z91.83 Wandering in diseases classified elsewhere; F32.9 Major depressive disorder, single episode, unspecified; R53.1 Weakness; Z95.1 Presence of aortocoronary bypass graft; D64.9 Anemia, unspecified; R63.0 Anorexia; Z68.29 Body mass index [BMI] 29.0-29.9, adult; R10.9 Unspecified abdominal pain; K59.00 Constipation, unspecified; K21.9 Gastro-esophageal reflux disease without esophagitis; M10.9 Gout, unspecified; I25.10 Atherosclerotic heart disease of native coronary artery without angina pectoris; Z87.891 Personal history of nicotine dependence; Z87.898 Personal history of other specified conditions; Z79.899 Other long term (current) drug therapy
CPT/HCPCS: 36415; 51701; 70450; 74177; 80053; 81001; 81003; 82607; 83690; 84155; 84165; 84443; 84550; 85025; 86694; 86695; 86696; 86780; 87086; 96361; 96374; 99284; 99285

== ENCOUNTER 2017-06-16 14:57 | Outpatient (CLI) | payer MEDICARE | END 2017-06-16 14:58 | disposition home or self-care (01) | LOC: EMS 14:57 | PROVIDERS: ATTEND Surgery | DX: F03.90 Unspecified dementia, unspecified severity, without behavioral disturbance, psychotic disturbance, mood disturbance, and anxiety (principal) | CPT/HCPCS: A0425; A0428 ==